=== PATIENT | female | born 1980 | race Caucasian/White ===

== ENCOUNTER 2017-11-13 05:30 | Day surgery (SDC) | payer OTHER ==
[~2017-11-13] VITALS: Ht 152.4 cm; Wt 65.8 kg
[~2017-11-13 05:30] MED LIST: MULTIVITAMINS1 EAC8 PO; ORTHO-CYCLEN1 EACH PO
--- NOTE | 2017-11-13 08:10 | NUR ---
PT ALERT, ORIENTED AND SUPPORTED BY HER XAVIER. SHE WAS PLEASANT AND ATTENTIVE. PT SEEMED PREPARED, HAD FEW QUESTIONS. SHE REQUESTED PRAYER, WILL FOLLOW NEEDED
--- NOTE | 2017-11-13 08:27 | NUR ---
11/13/17 0827 Donna Johnson 0805 PT ARRIVED TO PACU DROWSY. RESP EVEN AND UNLABORED. 0807 O2 REMOVED, O2 SAT 100%. 0820 PT ASKING QUESTIONS ABOUT PROCREDURE. VSS.
--- NOTE | 2017-11-13 11:05 | OR ---
[facility] [address], [place] [address] Signed DATE OF OPERATION: 11/13/2017 SURGEON: Owen Gomez MD PREOPERATIVE DIAGNOSIS: Grade 3 internal and external hemorrhoid in the right anterolateral position. POSTOPERATIVE DIAGNOSIS: Grade 3 internal and external hemorrhoid in the right anterolateral position. PROCEDURE: Internal and external hemorrhoidectomy x1. ESTIMATED BLOOD LOSS: Minimal. INDICATIONS: Judi is a 37-year-old female, who came to us in April 2017. She was having trouble with a prolapsing grade 3 internal and external hemorrhoid at the 5 to 6 o'clock position. She said the hemorrhoids bothered her since 2003. She said every time she goes to the bathroom it pops out. She has to push it back inside. It has become extremely annoying and painful. If she has diarrhea or constipation, it becomes quite miserable when it swells and it is not reducible. She has done everything she can from a conservative standpoint without success. She finally came back to the office to ask me to excise that hemorrhoid. In the office, she does have good sphincter tone. Her anoscope completely filled with her hemorrhoid at 5 o'clock position. Otherwise, we saw no other major issues. In the office, I had given her a booklet on hemorrhoids. We talked about hemorrhoids in detail. We discussed with her Benefiber and Balneol lotion. We also discussed Vaseline for bowel movements along with cleansing and using a bath or sitz baths. We also reviewed internal and external hemorrhoids. We reviewed various procedures. For her simple standard hemorrhoidectomy will suffice. She understands expected intraop and postop course. She is aware there is risk including, but not limited to bleeding, infection, scarring, change in contour of the skin, anal stenosis, as well as recurrent hemorrhoids. She expressed understanding and wished to proceed. PROCEDURE NOTE: Judi was taken into our operating room and placed in a prone renee-knife position with appropriate padding and monitoring. She had received a saddle block by our nurse member of the legislative [employer] in preop area. She was given preoperative antibiotics and later subcutaneous heparin. SCDs were utilized. She was then prepped and draped in the usual Electronically Signed By: OWEN GOMEZ MD 11/13/17 1105 PATIENT NAME: JUDI SEBASTIAN OPERATIVE REPORT DATE OF : 80 REPORT #: [id number] PHYSICIAN: OWEN GOMEZ MD PCP: NICOLE YATES REPORT IS CONFIDENTIAL AND NOT TO BE RELEASED WITHOUT AUTHORIZATION [facility] [address], [place] [address] Signed sterile fashion. The full circumference of the anal canal was examined with a half-melendez retractor and she has this one dominant hemorrhoid. Most of that was external, some of it was internal. She also had a tiny internal anal skin tag, which I simply cauterized. We could see in the posterior midline. 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 That gives her no trouble currently. We then used a 2-0 chromic at the apex of the internal hemorrhoid component and we excise the internal and external hemorrhoid component with the help of the cautery. We stayed above the sphincter muscles under direct visualization. After this the mucosa of the internal component was reapproximated with a locked 2-0 running chromic suture. The external component was left open for drainage. After this local anesthetic was copiously injected circumferentially around the anus for a field block. Dry gauze and ABD and underwear were then applied. Judi was then rotated into the supine position on her hospital bed and taken into recovery room in stable condition. Owen Gomez MD ALB/MODL /[id number] cc: ARNULFO Morillo MD Copies: NICOLE YATES ANDREW L MD ~ Electronically Signed By: OWEN GOMEZ MD 11/13/17 1105 PATIENT NAME: JUDI SEBASTIAN OPERATIVE REPORT DATE OF : 80 REPORT #: [id number] PHYSICIAN: OWEN GOMEZ MD PCP: NICOLE YATES REPORT IS CONFIDENTIAL AND NOT TO BE RELEASED WITHOUT AUTHORIZATION
== END 2017-11-13 09:18 | disposition home or self-care (01) ==
LOC: DS 05:30
PROVIDERS: Colon & Rectal Surgery
PROC: 06BY0ZC Excision of Hemorrhoidal Plexus, Open Approach (ICD-10-PCS; principal; 2017-11-13 06:45)
DX: K64.2 Third degree hemorrhoids (principal); K64.4 Residual hemorrhoidal skin tags; Z79.899 Other long term (current) drug therapy
CPT/HCPCS: 00902; J0694; J1644; J2250; J2704; J7120

== ENCOUNTER 2019-01-24 13:53 | Emergency (ER) | payer OTHER ==
[~2019-01-24] VITALS: Ht 152.4 cm; Wt 64.0 kg
[2019-01-24] MEDS ORDERED: NORCO 5-325 TA1 EACH PO (16:29)
== END 2019-01-24 16:38 | disposition home or self-care (01) ==
LOC: ED 13:53
DX: O03.9 Complete or unspecified spontaneous abortion without complication (principal); Z79.899 Other long term (current) drug therapy
CPT/HCPCS: 36415; 76801; 76817; 84702; 85025; 99284-25